=== PATIENT | male | born 1995 | race Two or more races ===

== ENCOUNTER 2023-02-19 10:41 | Emergency (ER) | payer OTHER ==
[~2023-02-19] VITALS: Ht 188 cm; Wt 158.8 kg
== END 2023-02-19 15:30 | disposition home or self-care (01) ==
LOC: ER 10:41
DX: J40 Bronchitis, not specified as acute or chronic (principal); B34.9 Viral infection, unspecified; Z20.822 Contact with and (suspected) exposure to COVID-19